=== PATIENT | female | born 1940 | race Caucasian/White ===

== ENCOUNTER 2017-11-04 11:13 | Emergency (ER) | payer MEDICARE ==
[~2017-11-04] VITALS: Ht 167.6 cm; Wt 60.0 kg
[~2017-11-04 11:13] MED LIST: ARIMIDEX1 MG OR; ASPIRIN EC325 MG PO; ATIVAN0.5 MG PO; ATIVAN1 MG PO; ECOTRIN325 MG OR; ENALAPRIL10 MG OR; ENALAPRIL10 MG PO; FEMARA2.5 MG PO; FLEXERIL OR; IMDUR30 MG PO; LEVAQUIN500 MG PO; LIDOCAINE VISC20 ML MT; LIPITOR40 MG PO; LOPRESSOR25 MG PO; LORTAB OR; MACRODANTIN100 MG OR; METFORMIN500 MG PO; NYSTATIN100000 M1 PO; OXYCODONE HCL5 MG PO; PEPCID AC20 MG OR; PERIDEX0.12 % MT; PLAVIX75 MG PO; PRAVACHOL20 MG OR; PROTONIX20 MG OR; TRAMADOL HCL50 MG PO; TYLENOL # 31 TAB OR; XANAX0.25 MG OR; ZOFRAN4 MG/TAB PO; ZOLOFT50 MG PO; [UNRECOGNIZED DRUG - REMARK]
[2017-11-04 11:17] VITALS: BP 138/67
== END 2017-11-04 12:30 | disposition home or self-care (01) ==
LOC: ED 11:13
DX: K94.21 Gastrostomy hemorrhage (principal); C02.9 Malignant neoplasm of tongue, unspecified; Y83.3 Surgical operation with formation of external stoma as the cause of abnormal reaction of the patient, or of later complication, without mention of misadventure at the time of the procedure

== ENCOUNTER 2017-11-21 09:57 | Emergency (ER) | payer MEDICARE ==
[~2017-11-21] VITALS: Ht 167.6 cm; Wt 60.0 kg
[2017-11-21 10:59] LABS: HEMATOCRIT 39.4 % (37.0-47.0); HEMOGLOBIN 12.2 g/dl (12.0-16.0); IMMATURE GRANULOCYTES 0.2 % (0.0-1.0); MEAN CELL VOLUME 90.6 fL CALC (80.0-100.0); NEUT# 3.12 thou/uL (2.00-7.15); RED BLOOD COUNT 4.35 mill/uL (4.20-5.60); RED CELL DISTRI WIDTH 14.5 % (11.5-15.5)
[2017-11-21] MEDS ORDERED: ATIVAN1 MG PO (11:03)
[2017-11-21] MEDS ORDERED: NORCO1 TA2 PO (11:03)
[2017-11-21 11:44] LABS: ALBUMIN 3.4 g/dL (3.2-5.0); ALKALINE PHOSPHATASE 80 u/l (38-126); ANION GAP 14 (6-22 (CALC)); BILIRUBIN, TOTAL 0.4 mg/dL (0.0-1.4); BUN 17 mg/dL (8-23); BUN/CREATININE RATIO 38 (12-20 (CALC)); CARBON DIOXIDE 30 mmol/l (22-30); CHLORIDE 102 mmol/l (95-108); CREATININE 0.5 mg/dL (0.5-1.0); GFR > 60 ML/MIN (>=60 (CALC)); GFR FOR AFR.AMER. > 60 ML/MIN (>=60 (CALC)); POTASSIUM 3.9 mmol/l (3.5-5.1); SGOT/AST 18 u/l (9-36); SGPT/ALT 28 u/l (11-66); SODIUM 142 mmol/l (137-146); TOTAL PROTEIN 6.6 g/dL (6.3-8.2)
[2017-11-21] MEDS ORDERED: CIMETIDINE400 M1 PO (11:53)
[2017-11-21] MEDS ORDERED: BENADRYL 50MG C50 MG PO (11:53)
[2017-11-21] MEDS ORDERED: PREDNISONE50 MG PO (11:53)
[2017-11-21 12:31] VITALS: BP 138/70
== END 2017-11-21 12:27 | disposition home or self-care (01) ==
LOC: ED 09:57
PROVIDERS: Emergency Medicine
DX: T78.3XXA Angioneurotic edema, initial encounter (principal); Z85.810 Personal history of malignant neoplasm of tongue

== ENCOUNTER 2018-04-06 10:12 | Emergency (ER) | payer MEDICARE ==
[~2018-04-06] VITALS: Ht 167.6 cm; Wt 50.0 kg
[~2018-04-06 10:12] MED LIST changes: +BENADRYL 50MG C50 MG PO; +CIMETIDINE400 M1 PO; +DILAUDID4 MG PO; +MEDDOSEPAK PO; +NORCO1 TA2 PO; +ONDANSETRON4 MG PO; +PERCOCET 5/325M1 TAB PO; +PERCOCET1 TA4 PO; +PREDNISONE50 MG PO; +PROTONIX40 MG PO
[2018-04-06] MEDS ORDERED: OXYCODONE HCL5 MG PO (10:46)
[2018-04-06 11:23] LABS: HEMATOCRIT 40.9 % (37.0-47.0); HEMOGLOBIN 13.2 g/dl (12.0-16.0); IMMATURE GRANULOCYTES 0.2 % (0.0-5.0); MEAN CELL VOLUME 94.2 fL CALC (80.0-100.0); MEAN CORPUSCULAR HGB 30.4 pG CALC (26.0-32.0); MEAN CORPUSCULAR HGB CONC 32.3 g/L CALC (32.0-36.0); NEUT# 3.43 thou/uL (2.00-7.15); RED BLOOD COUNT 4.34 mill/uL (4.20-5.60)
[2018-04-06 11:36] LABS: ALBUMIN 3.6 g/dL (3.2-5.0); ALKALINE PHOSPHATASE 98 u/l (38-126); ANION GAP 14 (6-22 (CALC)); BILIRUBIN, TOTAL 0.5 mg/dL (0.0-1.4); BUN 18 mg/dL (8-23); BUN/CREATININE RATIO 36 (12-20 (CALC)); CARBON DIOXIDE 36 mmol/l (22-30); CHLORIDE 97 mmol/l (95-108); CREATININE 0.5 mg/dL (0.5-1.0); GFR > 60 ML/MIN (>=60 (CALC)); GFR FOR AFR.AMER. > 60 ML/MIN (>=60 (CALC)); POTASSIUM 3.8 mmol/l (3.5-5.1); SGOT/AST 24 u/l (9-36); SODIUM 143 mmol/l (137-146)
[2018-04-06] MEDS ORDERED: CLEOCIN150 M1 PO (13:02)
[2018-04-06] MEDS ORDERED: PROVENTIL108 MCG/AC IN (13:02)
[2018-04-06 13:35] VITALS: BP 170/88
[2018-04-29] MEDS ORDERED: FENTANYL50 MCG/HR TD (13:00)
== END 2018-04-06 13:40 | disposition home or self-care (01) ==
LOC: ED 10:12
PROVIDERS: Emergency Medicine
DX: J69.0 Pneumonitis due to inhalation of food and vomit (principal); R06.02 Shortness of breath; C14.0 Malignant neoplasm of pharynx, unspecified; C79.51 Secondary malignant neoplasm of bone; R05 Cough

== ENCOUNTER 2018-04-09 14:15 | Emergency (ER) | payer MEDICARE ==
[~2018-04-09] VITALS: Ht 167.6 cm; Wt 59.1 kg
[~2018-04-09 14:15] MED LIST changes: +CLEOCIN150 M1 PO; +PROVENTIL108 MCG/AC IN
[2018-04-09] MEDS ORDERED: HYDROMORPHON4 MG PO (14:30)
[2018-04-09] MEDS ORDERED: OXYCOD/APAP1 TA4 PO (14:31)
[2018-04-09] MEDS ORDERED: VALTREX1 GM PO (14:38)
[2018-04-09] MEDS ORDERED: LACRI-LUBE S.O.P. OS (14:38)
[2018-04-09] MEDS ORDERED: DELTASONE20 MG PO (14:38)
[2018-04-09 14:45] VITALS: BP 117/71
== END 2018-04-09 14:45 | disposition home or self-care (01) ==
LOC: ED 14:15
DX: G51.0 Bell's palsy (principal)

== ENCOUNTER 2018-05-02 11:13 | Emergency (ER) | payer MEDICARE ==
[~2018-05-02] VITALS: Ht 167.6 cm; Wt 54.5 kg
[~2018-05-02 11:13] MED LIST changes: +DELTASONE20 MG PO; +FENTANYL50 MCG/HR TD; +HYDROMORPHON4 MG PO; +LACRI-LUBE S.O.P. OS; +OXYCOD/APAP1 TA4 PO; +VALTREX1 GM PO
[2018-05-02 11:43] LABS: HEMATOCRIT 40.4 % (37.0-47.0); HEMOGLOBIN 13.1 g/dl (12.0-16.0); IMMATURE GRANULOCYTES 0.4 % (0.0-5.0); MEAN CELL VOLUME 95.3 fL CALC (80.0-100.0); MEAN CORPUSCULAR HGB 30.9 pG CALC (26.0-32.0); MEAN CORPUSCULAR HGB CONC 32.4 g/L CALC (32.0-36.0); NEUT# 3.84 thou/uL (2.00-7.15); RED BLOOD COUNT 4.24 mill/uL (4.20-5.60); RED CELL DISTRI WIDTH 12.6 % (11.5-15.5)
[2018-05-02 11:54] LABS: ALBUMIN 3.6 g/dL (3.2-5.0); ALKALINE PHOSPHATASE 86 u/l (38-126); ANION GAP 10 (6-22 (CALC)); BILIRUBIN, TOTAL 0.6 mg/dL (0.0-1.4); BUN 24 mg/dL (8-23); BUN/CREATININE RATIO 53 (12-20 (CALC)); CARBON DIOXIDE 39 mmol/l (22-30); CHLORIDE 97 mmol/l (95-108); CREATININE 0.5 mg/dL (0.5-1.0); GFR > 60 ML/MIN (>=60 (CALC)); GFR FOR AFR.AMER. > 60 ML/MIN (>=60 (CALC)); POTASSIUM 3.8 mmol/l (3.5-5.1); SGOT/AST 27 u/l (9-36); SODIUM 142 mmol/l (137-146)
[2018-05-02] MEDS ORDERED: AMOXICILLIN875 MG PO (14:51)
[2018-05-02] MEDS ORDERED: MEDDOSEPAK PO (14:51)
[2018-05-02] MEDS ORDERED: PERCOCET 10/31 COMBO PO (15:10)
[2018-05-02 15:40] VITALS: BP 132/77
== END 2018-05-02 15:40 | disposition home or self-care (01) ==
LOC: ED 11:13
PROVIDERS: Emergency Medicine
DX: L03.211 Cellulitis of face (principal); G51.0 Bell's palsy; Z85.819 Personal history of malignant neoplasm of unspecified site of lip, oral cavity, and pharynx; Z90.09 Acquired absence of other part of head and neck
CPT/HCPCS: Q9967